=== PATIENT | female | born 1960 | race Caucasian/White ===

== ENCOUNTER 2017-03-08 06:44 | Day surgery (SDC) | payer OTHER ==
[~2017-03-08] VITALS: Ht 162.6 cm; Wt 86.5 kg
[2017-03-08 07:16] VITALS: Ht 162.6 cm; Wt 86.5 kg
[2017-03-08 08:00] VITALS: BP 151/93; PULSE 77; RESP 12
--- NOTE | 2017-03-08 08:25 | OPPN ---
Date/Time of Note Date/Time of Note DATE: 03/08/17 TIME: 08:24 Operative Report Preoperative Diagnosis Screening Postoperative Diagnosis Diverticulosis of the colon Internal hemorrhoids No colon neoplasm was identified Operation/Procedure Performed Colonoscopy Surgeon see signature line dental assistant medical assistant None Anesthesia: moderate sedation Estimated blood loss: none Transfusion Required none Specimen None Grafts/Implants none Complications none ASHELY GAMBLE MD Mar 08, 2017 08:25
[2017-03-08] MEDS ORDERED: MIDAZOLAM 1 MG/ML 2 ML INJ ONE ×2 (08:33)
[2017-03-08] MEDS ORDERED: FENTAnyl 50 MCG/ML VIAL ONE (08:33)
--- NOTE | 2017-03-08 11:20 | GILP ---
DATE OF PROCEDURE: NAME OF PROCEDURE: Colonoscopy. SURGEON: Ashely Song MD PREOPERATIVE DIAGNOSIS: Screening colonoscopy. POSTOPERATIVE DIAGNOSES 1. Colonoscopy all the way to the cecum. 2. Diverticulosis of the colon. 3. Internal hemorrhoids. 4. No colon neoplasm was identified. INDICATION FOR THE PROCEDURE: Ms. Rachana Thurman is a 56-year-old female patient who was schedu led for screening colonoscopy. The procedure and possible complications are well explained to the patient, she understood and conse nted to the procedure. DESCRIPTION OF PROCEDURE: Under the influence of fentanyl and Versed, the colonoscope was carefully introduced in the rectum and under direct vision, it was advanced all the way to the cecum. FINDINGS: The patient had diverticulosis of the colon. She also had internal hemorrhoids. No colo n neoplasm was identified. She tolerated the procedure very well and there was no complication from the procedure. At the end of the procedures, she was awake with stable vital signs and she was discharged home to the care of her family. IMPRESSION: Please see postoperative diagnoses. PLAN: 1. High fiber diet. 2. Next screening colonoscopy in 10 years. Dictated By: ASHELY SUH/MI Conf#: [id number] DID#: [id number]
== END 2017-03-08 11:33 | disposition home or self-care (01) ==
LOC: GIL 06:44
PROVIDERS: ATTEND Internal Medicine Gastroenterology
DX: Z12.11 Encounter for screening for malignant neoplasm of colon (principal); K57.30 Diverticulosis of large intestine without perforation or abscess without bleeding; K64.8 Other hemorrhoids
CPT/HCPCS: J2250; J3010

== ENCOUNTER 2018-10-07 06:58 | Day surgery (SDC) | payer OTHER ==
[~2018-10-07] VITALS: Ht 160 cm; Wt 94.6 kg
[2018-10-07] MEDS ORDERED: OMEPRAZOLE (07:42)
[2018-10-07] MEDS ORDERED: FAMOTIDINE (07:42)
[2018-10-07] MEDS ORDERED: BENAZEPRIL HCL (07:42)
[2018-10-07 07:43] VITALS: Ht 160 cm; Wt 94.6 kg
[2018-10-07 08:01] VITALS: BP 127/59; PULSE 65; RESP 18
--- NOTE | 2018-10-07 08:22 | PREAC ---
Date/Time of Note Date/Time of Note DATE: 10/07/18 TIME: 08:20 Anesthesia Eval and Record Evaluation Time Pre-Procedure Interview DATE: 10/07/18 TIME: 08:20 Age 58 Sex female NPO: 8 hrs Preoperative diagnosis abd pain, screening Planned procedure EGD/Colonoscopy Past Medical History Past Medical History: Includes (hx colon polyps) Cardio: HTN, Dyslipidemia GI: Obesity Surgery & Anesthesia Issues No known issue Meds Anticoagulation: No Beta Tianna within 24 hr: No Reason Beta Tianna not given: Pt. not on B-Tianna Reported Medications [Famotidine] No Conflict Check 10/07/18 [Benazepril Hcl] No Conflict Check 10/07/18 [Omeprazole] No Conflict Check 10/07/18 Discontinued Reported Medications [None] No Conflict Check 03/08/17 Meds reviewed: Yes Allergies Coded Allergies: No Known Allergy (Unverified , 03/08/17) Allergies Reviewed: Yes Labs/Studies Labs Reviewed: Reviewed by anesthesiologist test: N/A Pre-procedure Exam Last vitals Vital Signs Date Temp Pulse Resp B/P (MAP) Pulse Ox O2 O2 Flow FiO2 Time Delivery Rate 10/07/18 98.0 65 18 127/59 99 Room Air 08:01 (81) Airway: Adequate mouth opening, Adequate thyromental dist Mallampati: Mallampati II Teeth: Normal Lung: Normal Heart: Normal ASA Physical Status ASA physical status: 2 Emergency: None Planned Anesthetic General/MAC: MAC Pre-operative Attestations Prior to commencing anesthesia and surgery, the patient was re-evaluated, there was verification of: *The patient's identity *The results of appropriate recent lab work and preoperative vital signs *The above evaluation not changing prior to induction *Anesthetic plan, risk benefits, alternative and complications discussed with patient/family; questions answered; patient/family understands, accepts and wishes to proceed. Senior Accountant used MUSA CHENG October 07, 2018 08:22
[2018-10-07] MEDS ORDERED: LIDOCAINE 2% (SDV) 5 ML INJ ONE (08:23)
[2018-10-07] MEDS ORDERED: PROPOFOL 60 ML ONE (08:23)
[2018-10-07] MEDS ORDERED: ACETAMINOPHEN 500 MG TAB PO PRN (08:30)
[2018-10-07] MEDS ORDERED: FENTAnyl 50 MCG/ML VIAL IV PRN (08:30)
[2018-10-07] MEDS ORDERED: ONDANSETRON 4 MG INJ IV PRN (08:30)
[2018-10-07] MEDS ORDERED: ALBUTEROL 0.083% (NEB) 2.5 MG/3 ML AMP HHN PRN (08:30)
[2018-10-07 09:24] VITALS: BP 116/69; PULSE 76; RESP 18
--- NOTE | 2018-10-07 11:18 | PAC ---
Date/Time of Note Date/Time of Note DATE: 10/07/18 TIME: 11:17 Post-Anesthesia Notes Post-Anesthesia Note Last documented vital signs Vital Signs Date Temp Pulse Resp B/P (MAP) Pulse Ox O2 O2 Flow FiO2 Time Delivery Rate 10/07/18 76 18 116/69 96 Room Air 09:24 (85) 10/07/18 98.0 98 59 16 105/59 100% face 08:01 090 mask 6L 2 Activity: WNL Respiratory function: WNL Cardiovascular function: WNL Mental status: Baseline Pain reasonably controlled: Yes Hydration appropriate: Yes Nausea/Vomiting absent: Yes MUSA CHENG October 07, 2018 11:18
[2018-10-07] MEDS ORDERED: PHENYLephrine (100 MCG/ML) 10ML SYG ONE (11:29)
== END 2018-10-07 12:50 | disposition home or self-care (01) ==
LOC: GIL 06:58
PROVIDERS: ATTEND Internal Medicine Gastroenterology
DX: Z12.11 Encounter for screening for malignant neoplasm of colon (principal); K29.50 Unspecified chronic gastritis without bleeding; K31.9 Disease of stomach and duodenum, unspecified; I10 Essential (primary) hypertension; K64.4 Residual hemorrhoidal skin tags; K64.8 Other hemorrhoids; K57.31 Diverticulosis of large intestine without perforation or abscess with bleeding
CPT/HCPCS: 43239; 45378; 88305; 88312; J2370; Z7610